=== PATIENT | male | born 1950 | race Caucasian/White ===

== ENCOUNTER 2016-04-27 08:43 | Outpatient (CLI) | payer BC ==
[~2016-04-27] VITALS: Ht 182.9 cm; Wt 96.2 kg
--- NOTE | ~2016-04-27 | HEMODYNAMI ---
PATIENT:ANNETTE BAXTER MEDICAL RECORD: [id number] : 54 LOCATION:[facility] ADMISSION DATE: 04/27/16 Generatedon:04/27/201613:33 Patient name: ANNETTE BAXTER Patient #: [id number] SSN: DO B: 1950 Date of study: 04/27/2016 Page: Of Hemodynamic Procedure Report Patient Data Patient Demographics Procedure consent was obtained First Name: ANNETTE Gender: Male Last Name: SAHIL : 1950 [facility] Initial: ANDREW Age: 66 year(s) Patient #: [id number] Race: Additional ID: [id number] Contact details Address: [address] [place] [address] [facility] State: [place] City: [facility] Zip code: [address] Past Medical History Allergies: No known allergies Admission Admission Data Admission Date: 04/27/2016 Admission Time: 8:43 Admit Source: Other Insurance Payor: Private health insurance Height (in.): 72 BSA: 2.2 (m2) Height (cm.): 182.88 BMI: 29.29 (kg/m2) Weight (lbs.): 216 Weight (kg.): 97.98 Medications upon Admission Medications Dosage Times Administered Last Remarks per Delivery Day Date and Time Clopidogrel Yes 04/27/2016 0:00 Lab Results Lab Result Date: 04/27/2016 Lab Result Time: 9:20 Biochemistry Name Units Result Min Max Creatinine mg/dl 1.7 --(----)-* 0.6 1.3 CBC Name Units Result Min Max Hematocrit % 39.9 -*(----)-- 42 54 Hemoglobin g/dl 12.7 -*(----)-- 13.5 17.5 Procedure Procedure Types Cath Procedure Diagnostic Procedure LHC LHC w/Coronaries w/Grafts FFR/IVUS Intra-Coronary IVUS Initial PCI Procedure Coronary Stent Initial Procedure Description Procedure Date Procedure Date: 04/27/2016 Procedure Start Time: 13:14 Procedure End Time: 13:31 Procedure Staff Name Function Damir Jason MD Performing Physician Ashley Koenig RN Nurse Agustín Martinez RT Scrub Burke Moreau RN Supervisor [employer] Graeme Guerrero RT Monitor Procedure Data Cath Procedure Fluoroscopy Diagnostic fluoroscopy Total fluoroscopy Time: 5.1 time: 5.1 min min Diagnostic fluoroscopy Total fluoroscopy dose: 764 dose: 764 mGy mGy Contrast Material Contrast Material Type Amount (ml) Isovue 300 117 Entry Location Entry Primary Successful Side Size Upsize Upsize Entry Closure Succes sful Closure Location (Fr) 1 (Fr) 2 (Fr) Remarks Device Remarks Femoral Right 5 Fr Vascade artery Closure System Estimated blood loss: 10 ml Diagnostic catheters Device Type Used For End Catheter Placement Cordis 5Fr Pigtail Procedure Catheter (MP) Cordis 5Fr JL 4.0 Procedure Catheter (MP) Cordis 5Fr 3DRC Catheter Procedure (MP) Procedure Complications No complications Procedure Medications Medication Administration Route Dosage Oxygen NC 2 l/min Lidocaine 2% added to field 20 Heparin Flush Bag added to field 2 bags (1000units/500ml NS) 0.9% NaCl I.V. 100 ml/hr Benadryl I.V. 50 mg Versed I.V. 1 mg Versed I.V. 1 mg Fentanyl I.V. 50 mcg Fentanyl I.V. 50 mcg Heparin Bolus I.V. 4000 units Versed I.V. 1 mg Hemodynamics Rest BSA: 2.2 (m2) HGB: 12.7 (g/dl) O2 Consumption: Estimated: 260.96 (ml/min) O2 Con sumption indexed: Estimated:118.62 (ml/min/m) Heart Rate: 75 (bpm) Snapshots Pre Cath Intra NCS Post Cath Vital Signs Time Heart Resp SPO2 etCO2 [id number] NIBP (mmHg) Rhythm Pain Sedation Rate (ipm) (%) (mmHg) (mmHg) Status Level (bpm) 12:59:38 59 25 100 0 0 149/80(122) NSR 0 (11) 10(A) , No pain 13:03:48 72 18 99 0 0 138/98(110) NSR 0 (11) 10(A) , No pain 13:08:06 64 18 99 0 0 143/78(94) NSR 0 (11) 10(A) , No pain 13:12:22 60 16 100 0 0 122/85(109) NSR 0 (11) 10(A) , No pain 13:16:28 64 18 98 0 0 123/79(100) NSR 0 (11) 9(A) , No pain 13:20:42 70 16 97 0 0 124/74(101) NSR 0 (11) 9(A) , No pain 13:24:54 83 17 99 0 0 136/84(104) NSR 0 (11) 9(A) , No pain 13:29:10 73 16 99 0 0 133/81(102) NSR 0 (11) 10(A) , No pain Medications Time Medication Route Dose Verified Delivered Reason Notes Effectiveness by by 12:48:31 Oxygen NC 2 Damir Buffie used for l/min Eren Koenig RN procedure 12:48:40 Lidocaine 2% added 20ml Damir Damir for local to vial Eren Jason MD anesthetic field 12:48:46 Heparin Flush added 2 Damir Damir used for Bag to bags Eren Jason MD procedure (1000units/500ml field NS) 13:03:02 Benadryl I.V. 50 mg Damir Buffie used for Eren Koenig RN procedure 13:03:02 0.9% NaCl I.V. 100 Damir Buffie Per physician ml/hr Eren Koenig RN 13:15:43 Versed I.V. 1 mg Damir Buffie for sedation Eren Koenig RN 13:15:50 Fentanyl I.V. 50 Damir Buffie for sedation mcg Eren Koenig RN 13:18:44 Versed I.V. 1 mg Damir Buffie for sedation Eren Koenig RN 13:18:50 Fentanyl I.V. 50 Damir Buffie for sedation mcg Eren Koenig RN 13:19:47 Heparin Bolus I.V. 4000 Damir Buffie for verifi ed units Eren Koenig RN anticoagulation with dr jason 13:23:33 Versed I.V. 1 mg Damir Buffie for sedation Eren Koenig RN Procedure Log Time Note 12:30:47 Andrei Beal RT(R) (CV) sent for patient. Start room use. 12:44:47 Admit Source: Other 12:45:44 Diagnostic Cath status Elective 12:45:48 Time tracking: Regular hours 12:45:53 Plan of Care:Hemodynamics will remain stable., Cardiac rhythm will remain stable., Comfort level will be maintained., Respiratory function will remain adequate., Patient/ family verbilizes understanding of procedure., Procedure tolerated without complication., Recovers from procedure without complications.. 12:48:31 Oxygen 2 l/min NC was given by Ashley Koenig RN; used for procedure; 12:48:40 Lidocaine 2% 20ml vial added to field was given by Damir Jason MD; for local anesthetic; 12:48:46 Heparin Flush Bag (1000units/500ml NS) 2 bags added to field was given by Damir Jason MD; used for procedure; 12:50:47 Patient received from Outpatients to [facility] 2 Alert and oriented. Tansferred to table in Supine position. 12:50:48 Warm blankets applied, and aubrey hugger turned on for patient comfort. 12:50:48 Correct patient and procedure confirmed by team. 12:50:50 Signed procedure consent form obtained from patient. 12:51:08 ECG and BP/O2 sat monitors applied to patient. 12:52:29 H&P Date Dictated: 04/23/2016 Within 30 days and on chart., H&P Addendum completed by physician on day of procedure. (MUST COMPLETE FOR ALL OUTPATIENTS). 12:52:31 Pre-procedure instructions explained to patient. 12:52:31 Pre-op teaching completed and patient verbalized understanding. 12:52:32 Family in waiting room. 12:52:33 Patient NPO since Midnight. 12:52:38 Patient allergic to No known allergies 12:52:53 Is the patient allergic to Iodine/contrast media? No. 12:52:54 Is patient on blood thinner?Yes 12:52:57 ACC The patient was administered the following blood thiners within the last 24 hours: ACCPlavix 12:54:01 Patient diabetic? No. 12:54:06 Previous problem with sedation/anesthesia? No ? 12:58:21 Vital chart was started 13:01:41 Snore? Yes 13:01:42 Sleep apnea? No 13:01:44 Deviated septum? No 13:01:44 Opens mouth fully? Yes 13:01:45 Sticks out tongue? Yes 13:01:47 Airway obstruction? No ? 13:01:49 Dentures? No ? 13:01:52 Pre procedure: right dorsailis pedis pulse 2+ Normal; easily identifiable; not easily obliterated 13:01:54 Patient pain scale 0/10 ?. 13:02:09 IV started by Burke Moreau RN inright hand with a 20 gauge IV catheter with 0.9% NaCl at KVO. 13:02:37 Lab Result : Creatinine 1.7 mg/dl 13:02:37 Lab Result : Hematocrit 39.9 % 13:02:49 Lab Result : Hemoglobin 12.7 g/dl 13:02:53 Lab results completed and on chart. 13:02:55 Right groin area was prepped with chlora-prep and draped in sterile fashion 13:02:56 Alarms reviewed by R. N. 13:02:57 Sharps counted by scrub and verified by R.N. 13:02:59 Use device set Femoral Dx 13:03:02 0.9% NaCl 100 ml/hr I.V. was given by Ashley Koenig RN; Per physician; 13:03:02 Benadryl 50 mg I.V. was given by Ashley Koenig RN; used for procedure; 13:03:02 Tegaderm 4 x 4 opened to sterile field. 13:03:03 Acist Manifold opened to sterile field. 13:03:03 Acist Hand Control opened to sterile field. 13:03:04 Acist Syringe opened to sterile field. 13:03:04 Bag Decanter opened to sterile field. 13:03:05 Cardinal Cath Pack opened to sterile field. 13:03:05 Terumo 5Fr [place] Sheath opened to sterile field. 13:03:06 St Gutierrez 260cm J .035 wire opened to sterile field. 13:03:07 Cordis Infinity 5Fr Multipack catheter opened to sterile field. 13:04:17 ACC Patient presents with Stable Angina CCS Anginal Class 2--Slight limitation of ordinary activity. 13:04:36 Baseline sample Acquired. 13:05:06 Rhythm: sinus rhythm 13:07:04 Zero performed for pressure channel P1 13:08:00 Patient Weight : 216 lbs 13:08:05 Patient Height : 72 inches 13:08:05 Insurance Payor : Private health insurance 13:14:09 --------ALL STOP TIME OUT------ 13:14:09 Final Timeout: patient, procedure, and site verified with staff and physician. All members of the team are in agreement. 13:14:11 Right groin site verified by team. 13:14:14 Physical assessment completed. ASA score P 2 - A patient with mild systemic disease as per Damir Jason MD. 13:14:17 Sedation plan: IV Moderate Sedation Versed, Fentanyl 13:14:27 Procedure started. 13:14:28 Full Disclosure recording started 13:14:30 Local anesthetic to right femoral artery with Lidocaine 2% by Damir Jason MD.INITIAL ACCESS ONLY 13:15:24 A 5 Fr sheath was inserted into the Right Femoral artery 13:15:29 J wire advanced. 13:15:43 Versed 1 mg I.V. was given by Ashley Koenig RN; for sedation; 13:15:46 A Cordis 5Fr Pigtail Catheter (MP) was advanced over the wire and used for Procedure. 13:15:50 Fentanyl 50 mcg I.V. was given by Ashley Koenig RN; for sedation; 13:15:52 LV gram done using COLEMAN 13:15:56 Injector settings: Ml/sec: 10, Volume: 20, 13:16:12 EF : 35 % 13:16:14 Catheter exchanged over wire. 13:16:18 A Cordis 5Fr JL 4.0 Catheter (MP) was advanced over the wire and used for Procedure. 13:17:29 Merit BasixCompak Inflation Kit opened to sterile field. 13:17:39 Terumo 6Fr [place] Sheath opened to sterile field. 13:17:39 Briceno Whisper J 300cm 0.014 guide wire opened to sterile field. 13:17:49 LCA angiography performed. 13:17:51 Catheter exchanged over wire. 13:17:57 A Cordis 5Fr 3DRC Catheter (MP) was advanced over the wire and used for Procedure. 13:18:00 SANCHEZ to LAD angiography performed. 13:18:38 RCA angiography performed. 13:18:44 Versed 1 mg I.V. was given by Ashley Koenig RN; for sedation; 13:18:50 Fentanyl 50 mcg I.V. was given by Ashley Koenig RN; for sedation; 13:19:41 skip graft to Ramus and Circ angiography performed. 13:19:47 Heparin Bolus 4000 units I.V. was given by Ashley Koenig RN; for anticoagulation; verified with dr jason 13:20:01 Catheter removed. 13:20:20 [place] IVUS Catheter opened to sterile field. 13:20:41 Medtronic Launcher 6Fr HS II guide catheter opened to sterile field. 13:21:09 6 Fr HS II guide catheter was inserted over the wire 13:21:11 whisper wire advanced. 13:21:16 Wire advanced across lesion. 13:21:19 IVUS catheter advanced over wire. 13:22:05 IVUS pass to RCA lesion performed. 13:23:33 Versed 1 mg I.V. was given by Ashley Koenig RN; for sedation; 13:24:01 IVUS catheter removed over wire. 13:25:28 Inflation Number: 1 A Medtronic Resolute 3.5 X 15 stent was prepped and advanced across the Mid RCA. The stent was deployed at 21 OSVALDO for 0:10 (min:sec). 13:25:44 multiple inflations to 21 atms 13:25:52 ACC PCI Site: mRCA has 77% stenosis. 13:25:55 ACC Pre-intervention MAGGIE Flow is 1. 13:26:48 Stent catheter was removed intact over wire. 13:27:07 ACC Post-intervention MAGGIE Flow is 3. 13:27:08 Wire removed. 13:27:09 Guide catheter removed. 13:27:26 Vascade 6/7 Fr Closure Device opened to sterile field. 13:29:20 Sheath removed intact; hemostasis achieved with Vascade Closure System to the Right Femoral artery. 13:29:22 Procedure ended.(Physican Out) 13:29:26 Fluoroscopy time 05.10 minutes. 13:29:30 Flurop Dose total: 764 13:29:30 Fluoroscopy dose: 764 mGy 13:29:42 Contrast amount:Isovue 300 117ml. 13:29:43 Sharps counted by scrub and verified by R.N. 13:29:45 Insertion/operative site no bleeding no hematoma. 13:29:47 Post-op/insertion site Right Femoral artery dressed using a 4 x 4 and Tegaderm. 13:29:51 Post right femoral artery:stable, soft, clean and dry 13:29:59 Post-procedure physical assessment completed. ASA score P 2 - A patient with mild systemic disease as per Damir Jason MD. 13:30:02 Post procedure rhythm: unchanged. 13:30:08 Estimated blood loss: 10 ml 13:30:13 Post procedure instruction explained to patient.Patient verbalizes understanding. 13:30:13 Patient needs reinforcement of post procedure teaching. 13:30:31 Procedure type changed to Cath procedure, Diagnostic procedure, LHC, LHC w/Coronaries w/Grafts, FFR/IVUS, Intra-Coronary IVUS Initial, PCI procedure, Coronary Stent Initial 13:31:33 Procedure and supply charges have been captured, reviewed, submitted and are correct. 13:31:34 Procedure Complication : No complications 13:31:37 Vital chart was stopped 13:31:37 See physician's report for complete and final results. 13:31:39 Report given to Post Procedure Room. 13:31:41 Patient transfered to Post Procedure Room with Stretcher. 13:31:43 Procedure ended. 13:31:43 Full Disclosure recording stopped 13:31:48 ACC-PCI Only Patient was given prescriptions, or instructed by Damir Jason MD to start/continue the following medications upon discharge: Plavix 13:33:09 End room use (Document Last) Intervention Summary Intervention Notes Time ActionType Lesion and Equipment Action# Pressure Duration Attributes Used 13:25:28 Place stent Mid RCA Medtronic 1 21 00:10 Resolute 3.5 X 15 stent Device Usage Item Name Manufacture Quantity Catalog Hospital Part Current Minima l Lot# / Number Charge Number Stock Stock Serial# Code Tegaderm 4 1 [id number] 258121 265321 5 x 4 Acist Acist 1 42841 819341 211476 864687 5 Manifold Medical Systems Inc Acist Hand Acist 1 35165 919432 610800 478977 5 Control Medical Systems Inc Acist Acist 1 29520 298390 100064 174770 20 Syringe Medical Systems Inc Bag Microtek 1 2001S 318921 70460 731997 5 Decanter Medical Inc. Cardinal Cardinal 1 [id number] 522044 00407 037681 5 Cath Pack Health Terumo 5Fr Terumo 1 [id number] 271897 024335 889737 [address] Gutierrez 1 758106 252721 471460 095128 30 260cm J .035 wire Cordis Cardinal 1 [id number] 943078 50184 501224 30 Infinity Health 5Fr Multipack catheter Cordis 5Fr Cardinal 1 [id number] 5 Pigtail Health Catheter (MP) Cordis 5Fr Cardinal 1 332778 5 JL 4.0 Health Catheter (MP) Merit Merit 1 [id number] 056386 133491 820253 15 BasixCompak Medical Inflation Kit Terumo 6Fr Terumo 1 [id number] 402829 258982 40 [place] Sheath Briceno Briceno 1 [id number] 647306 255150 935227 5 Whisper J Vascular 300cm 0.014 guide wire Cordis 5Fr Cardinal 1 909126 5 3DRC Health Catheter (MP) [place] 1 [id number] 819815 728088 182895 8 [place] IVUS Catheter Medtronic Medtronic 1 [id number] 196518 63348 375512 1 Launcher 6Fr HS II guide catheter Medtronic Medtronic 1 [id number] 067331 0 [id number] Resolute 3.5 X 15 stent Vascade 6/7 Cardiva 1 [id number] 846467 210646 362705 5 Fr Closure Medical, Device Inc. Signature Audit [place] Stage Time Signature Unsigned Intra-Procedure 04/27/2016 Graeme Guerrero 1:33:30 PM RT(R) Signatures Monitor : Graeme Guerrero RT Signature : Date : Time : [facility] [address] [place] [address]
--- NOTE | ~2016-04-27 | HEMODYNAMI ---
PATIENT:ANNETTE BAXTER MEDICAL RECORD: [id number] : 54 LOCATION[id number] ADMISSION DATE: 04/27/16 Generatedon:04/28/20169:45 Patient name: ANNETTE BAXTER Patient #: [id number] SSN: DO B: 1950 Date of study: 04/28/2016 Page: Of Hemodynamic Procedure Report Patient Data Patient Demographics Procedure consent was obtained First Name: ANNETTE Gender: Male Last Name: SAHIL : 1950 [facility] Initial: ANDREW Age: 66 year(s) Patient #: [id number] Race: Additional ID: [id number] Contact details Address: [address] [place] [address] [facility] State: [place] City: [facility] Zip code: [address] Past Medical History Allergies: No known allergies Admission Admission Data Admission Date: 04/27/2016 Admission Time: 8:43 Admit Source: Other Insurance Payor: Private Room #: [id number] health insurance Height (in.): 72 BSA: 2.2 (m2) Height (cm.): 182.88 BMI: 29.29 (kg/m2) Weight (lbs.): 216 Weight (kg.): 97.98 Medications upon Admission Medications Dosage Times Administered Last Remarks per Delivery Day Date and Time Clopidogrel Yes 04/27/2016 0:00 Lab Results Lab Result Date: 04/27/2016 Lab Result Time: 9:20 Biochemistry Name Units Result Min Max Creatinine mg/dl 1.7 --(----)-* 0.6 1.3 CBC Name Units Result Min Max Hematocrit % 39.9 -*(----)-- 42 54 Hemoglobin g/dl 12.7 -*(----)-- 13.5 17.5 Procedure Procedure Types Cath Procedure PCI Procedure Coronary Stent Initial Peripheral Cath Diagnostic Procedure Cath Peripheral Four Vessel Arteriogram Procedure Description Procedure Date Procedure Date: 04/28/2016 Procedure Start Time: 9:18 Procedure End Time: 9:45 Procedure Staff Name Function Damir Jason MD Performing Physician Elizabeth Rausch RT Scrub Ashley oKenig RN Nurse Burke Moreau RN Airport Traffic Controller Agustín Martinez RT Monitor Procedure Data Cath Procedure Fluoroscopy Diagnostic fluoroscopy Total fluoroscopy Time: 5.9 time: 5.9 min min Diagnostic fluoroscopy Total fluoroscopy dose: 643 dose: 643 mGy mGy Contrast Material Contrast Material Type Amount (ml) Isovue 300 85 Entry Location Entry Primary Successful Side Size Upsize Upsize Entry Closure Succes sful Closure Location (Fr) 1 (Fr) 2 (Fr) Remarks Device Remarks Femoral Left 6 Fr Vascade artery Short Closure System Estimated blood loss: 10 ml Diagnostic catheters Device Type Used For End Catheter Placement Cordis Infinity 5Fr 3DRC Procedure catheter Procedure Complications No complications Procedure Medications Medication Administration Route Dosage Oxygen NC 2 l/min Plavix P.O. 75 mg Lidocaine 2% added to field 20 Heparin Flush Bag added to field 2 bags (1000units/500ml NS) 0.9% NaCl I.V. 100 ml/hr Versed I.V. 1 mg Fentanyl I.V. 50 mcg Versed I.V. 1 mg Fentanyl I.V. 50 mcg Heparin Bolus I.V. 4000 units Fentanyl I.V. 50 mcg Hemodynamics Rest BSA: 2.2 (m2) HGB: 12.7 (g/dl) O2 Consumption: Estimated: 255.61 (ml/min) O2 Con sumption indexed: Estimated:116.19 (ml/min/m) Heart Rate: 68 (bpm) Snapshots Pre Cath Intra NCS Post Cath Vital Signs Time Heart Resp SPO2 etCO2 [id number] NIBP (mmHg) Rhythm Pain Sedation Rate (ipm) (%) (mmHg) (mmHg) Status Level (bpm) 9:03:56 73 17 92 0 0 Measuring NSR 0 (11) 10(A) , No pain 9:04:21 66 18 98 0 0 149/85(132) NSR 0 (11) 10(A) , No pain 9:08:43 68 16 99 0 0 161/88(120) NSR 0 (11) 10(A) , No pain 9:13:07 67 16 99 0 0 139/86(107) NSR 0 (11) 10(A) , No pain 9:17:25 75 15 99 0 0 128/83(100) NSR 0 (11) 10(A) , No pain 9:21:45 73 17 95 0 0 130/68(105) NSR 0 (11) 9(A) , No pain 9:26:03 70 16 96 0 0 136/79(103) NSR 0 (11) 9(A) , No pain 9:30:23 70 19 97 0 0 113/66(96) NSR 0 (11) 9(A) , No pain 9:35:23 75 17 96 0 0 Measuring NSR 0 (11) 9(A) , No pain 9:35:29 75 19 96 0 0 131/77(108) NSR 0 (11) 9(A) , No pain 9:39:47 76 16 95 0 0 125/77(96) NSR 0 (11) 9(A) , No pain 9:42:28 74 17 96 0 0 123/69(84) NSR 0 (11) 10(A) , No pain Medications Time Medication Route Dose Verified Delivered Reason Notes Effectiveness by by 9:03:12 Oxygen NC 2 Damir Buffie used for l/min Eren Koenig RN procedure 9:05:32 Plavix P.O. 75 mg Damir Buffie for Eren Koenig RN antiplatelet therapy 9:12:53 Lidocaine 2% added 20ml Damir Damir for local to vial Eren Jason MD anesthetic field 9:12:59 Heparin Flush added 2 Damir Damir used for Bag to bags Eren Jason MD procedure (1000units/500ml field NS) 9:13:07 0.9% NaCl I.V. 100 Damir Buffie Per physician ml/hr Eren Koenig RN 9:17:45 Versed I.V. 1 mg Damir Buffie for sedation Eren Koenig RN 9:17:53 Fentanyl I.V. 50 Damir Buffie for sedation mcg Eren Koenig RN 9:22:44 Versed I.V. 1 mg Damir Buffie for sedation Eren Koenig RN 9:22:47 Fentanyl I.V. 50 Damir Buffie for sedation mcg Eren Koenig RN 9:25:57 Heparin Bolus I.V. 4000 Damirlesly Grijalvaie for verifie d units Eren Koenig RN anticoagulation with dr jsaon 9:37:03 Fentanyl I.V. 50 Damir Buffie for sedation [facility] [place] Eren Koenig wreath inspector Log Time Note 8:35:23 Burke Moreau RN sent for patient. Start room use. 8:47:52 Admit Source: Other 8:48:16 Patient Weight : 216 lbs 8:48:16 Patient Height : 72 inches 8:48:21 Diagnostic Cath status Elective 8:48:25 Time tracking: Regular hours 8:48:32 Plan of Care:Hemodynamics will remain stable., Cardiac rhythm will remain stable., Comfort level will be maintained., Respiratory function will remain adequate., Patient/ family verbilizes understanding of procedure., Procedure tolerated without complication., Recovers from procedure without complications.. 8:54:10 Patient received from PCU to CCL 2 Alert and oriented. Tansferred to table in Supine position. 8:54:11 Warm blankets applied, and aubrey hugger turned on for patient comfort. 8:54:12 Correct patient and procedure confirmed by team. 8:54:13 Signed procedure consent form obtained from patient. 8:54:14 ECG and BP/O2 sat monitors applied to patient. 9:02:07 Vital chart was started 9:02:09 Baseline sample Acquired. 9:02:16 Rhythm: sinus rhythm 9:03:12 Oxygen 2 l/min NC was given by Ashley Koenig RN; used for procedure; 9:03:13 H&P Date Dictated: 04/27/2016 Within 30 days and on chart.. 9:03:14 Pre-procedure instructions explained to patient. 9:03:14 Pre-op teaching completed and patient verbalized understanding. 9:03:16 Family in waiting room. 9:03:19 Patient NPO since Midnight. 9:03:39 Is the patient allergic to Iodine/contrast media? No. 9:03:57 Is patient on blood thinner?Yes 9:04:05 ACC The patient was administered the following blood thiners within the last 24 hours: ACCPlavix 9:04:30 Plavix given 04/27/16. 9:04:34 Patient diabetic? No. 9:04:39 Previous problem with sedation/anesthesia? No ? 9:04:41 Snore? Yes 9:04:42 Sleep apnea? No 9:04:43 Deviated septum? No 9:04:44 Opens mouth fully? Yes 9:04:45 Sticks out tongue? Yes 9:04:46 Airway obstruction? No ? 9:04:49 Dentures? No ? 9:05:32 Plavix 75 mg P.O. was given by Ashley Koenig RN; for antiplatelet therapy; 9:09:38 Pre procedure: left dorsailis pedis pulse 1+ Palpable, but thready & weak; easily obliterated 9:09:41 Patient pain scale 0/10 ?. 9:09:57 IV patent on arrival in right hand with 0.9% NaCl at [facility]. 9:10:07 Lab results completed and on chart. 9:10:23 Left groin area was prepped with chlora-prep and draped in sterile fashion 9:10:24 Alarms reviewed by R. N. 9:10:25 Sharps counted by scrub and verified by R.N. 9:10:36 Use device set Femoral PCI 9:10:38 Acist Manifold opened to sterile field. 9:10:39 Tegaderm 4 x 4 opened to sterile field. 9:10:40 Merit BasixCompak Inflation Kit opened to sterile field. 9:10:41 Acist Syringe opened to sterile field. 9:10:42 Acist Hand Control opened to sterile field. 9:10:42 Bag Decanter opened to sterile field. 9:10:42 Cardinal Cath Pack opened to sterile field. 9:10:43 Terumo 6Fr [place] Sheath opened to sterile field. 9:10:43 St Gutierrez 260cm J .035 wire opened to sterile field. 9:11:17 Briceno Whisper J 300cm 0.014 guide wire opened to sterile field. 9:12:16 Procedure type changed to Cath procedure, PCI procedure, Coronary Stent Initial, Peripheral Cath Diagnostic Procedure, Cath Peripheral, Four Vessel Arteriogram 9:12:53 Lidocaine 2% 20ml vial added to field was given by Damir Jason MD; for local anesthetic; 9:12:59 Heparin Flush Bag (1000units/500ml NS) 2 bags added to field was given by Damir Jason MD; used for procedure; 9:13:07 0.9% NaCl 100 ml/hr I.V. was given by Ashely Koenig RN; Per physician; 9:14:18 --------ALL STOP TIME OUT------ 9::18 Final Timeout: patient, procedure, and site verified with staff and physician. All members of the team are in agreement. 9:14:21 Left groin site verified by team. 9::23 Physical assessment completed. ASA score P 2 - A patient with mild systemic disease as per Damir Jason MD. 9:14:28 Sedation plan: IV Moderate Sedation Versed, Fentanyl 9:17:45 Versed 1 mg I.V. was given by Ashley Koenig RN; for sedation; 9:17:53 Fentanyl 50 mcg I.V. was given by Ashley Koenig RN; for sedation; 9:18:47 Procedure started. 9:18:47 Full Disclosure recording started 9:18:58 Local anesthetic to left femerol artery with Lidocaine 2% by Damir Jason MD.INITIAL ACCESS ONLY 9:19:41 A 6 Fr Short sheath was inserted into the Left Femoral artery 9:19:58 A Building Our Communityity 5Fr 3DRC catheter was advanced over the wire and used for Procedure. 9:20:56 Right subclavian angiography performed 9::59 Left carotid angiography performed. 9:21:00 Left subclavian angiography performed 9:21:17 Cordis 6FR XBLAD 3.5 guide catheter opened to sterile field. 9:22:44 Versed 1 mg I.V. was given by Ashley Koenig RN; for sedation; 9::47 Fentanyl 50 mcg I.V. was given by Ashley Koenig RN; for sedation; 9:23:26 Catheter removed. 9:23:40 6 Fr XBLAD 3.5 guide catheter was inserted over the wire 9:24:01 ACC PCI Site: pCirc has 80% stenosis. 9:24:04 ACC Pre-intervention MAGGIE Flow is 3. 9:24:08 Whisper wire advanced. 9:25:57 Heparin Bolus 4000 units I.V. was given by Ashley Koenig RN; for anticoagulation; verified with dr jason 9:26:37 Wire advanced across lesion. 9:32:02 Inflation Number: 1 A Medtronic Resolute 4.0 X 9 stent was prepped and advanced across the Prox CX. The stent was deployed at 23 OSVALDO for 0:10 (min:sec). 9:32: Stent catheter was removed intact over wire. 9:37:03 Fentanyl 50 mcg I.V. was given by Ashley Koenig RN; for sedation; 9:38:03 Inflation number: 2 A NC Euphora 4.0 x 8 balloon was prepped and advanced across the Prox CX, then inflated to 23 OSVALDO for 0:10 (min:sec). 9:38:49 Multiple inflations to 23 Atms. 9:38:53 Balloon removed over the wire. 9:38:53 Wire removed. 9:38:54 Wire removed. 9:39:15 Vascade 6/7 Fr Closure Device opened to sterile field. 9:39:27 Sheath removed intact; hemostasis achieved with Vascade Closure System to the Left Femoral artery. 9:39:30 Procedure ended.(Physican Out) 9:39:47 Fluoroscopy time 05.90 minutes. 9:39:52 Flurop Dose total: 643 9:39:52 Fluoroscopy dose: 643 mGy 9:40:06 Contrast amount:Isovue 300 85ml. 9:40:08 Sharps counted by scrub and verified by R.N. 9:40:11 Insertion/operative site no bleeding no hematoma. 9:40:15 Post-op/insertion site Left Femoral artery dressed using a 4 x 4 and Tegaderm. 9:40:17 Post Procedure Pulses reassessed and unchanged 9:40:20 Post-procedure physical assessment completed. ASA score P 2 - A patient with mild systemic disease as per Damir Jason MD. 9:40:23 Post procedure rhythm: unchanged. 9:40:26 Estimated blood loss: 10 ml 9:40:28 Post procedure instruction explained to patient.Patient verbalizes understanding. 9:40:29 Patient needs reinforcement of post procedure teaching. 9:40:32 Procedure Complication : No complications 9:41:43 Procedure and supply charges have been captured, reviewed, submitted and are correct. 9:44:55 Vital chart was stopped 9:44:56 See physician's report for complete and final results. 9:44:58 Report given to PCU. 9:45:01 Patient transfered to PCU with Bed. 9:45:04 Procedure ended. 9:45:04 Full Disclosure recording stopped 9:45:10 ACC-PCI Only Patient was given prescriptions, or instructed by Damir Jason MD to start/continue the following medications upon discharge: Plavix 9:45:12 End room use (Document Last) Intervention Summary Intervention Notes Time ActionType Lesion and Equipment Action# Pressure Duration Attributes Used 9:32:02 Place stent Prox CX Medtronic 1 23 00:10 Resolute 4.0 X 9 stent 9:38:03 Inflate Prox CX NC 2 23 00:10 balloon Euphora 4.0 x 8 balloon Device Usage Item Name Manufacture Quantity Catalog Hospital Part Current Minima l Lot# / Number Charge Number Stock Stock Serial# Code Acist Acist 1 98375 630901 690785 625899 5 Tal Medical Medical Systems Inc Tegaderm 4 3M 1 [id number] 177835 540019 482416 5 x 4 Merit Merit 1 [id number] 042683 706717 278409 15 ZEFR Medical Inflation Kit Acist Acist 1 86390 259444 977034 991664 20 Syringe Medical Systems Inc Acist Hand Acist 1 82935 518287 729518 081328 5 codebender Medical Systems ENDOGENX Bag Microtek 1 2002S 939220 60824 508557 5 ORDISSIMO Medical Inc. Cardinal Cardinal 1 [id number] 456057 94112 718833 5 Cath Pack Health Terumo 6Fr Terumo 1 [id number] 561770 786317 232288 [address] Gutierrez 1 615403 866809 284175 657373 30 260cm J .035 wire Briceno Briceno 1 [id number] 084108 573295 593918 5 Whisper J Vascular 300cm 0.014 guide wire Cordis Cardinal 1 [id number] 191697 823765 307596 9 Infinity Health 5Fr 3DRC catheter Cordis 6FR Cardinal 1 [id number] 525367 400909 564704 10 XBLAD 3.5 Health guide catheter Medtronic Medtronic 1 [id number] 611911 387060 0 [id number] Resolute 4.0 X 9 stent NC Euphora Medtronic 1 [id number] 158510 670033 477097 0 [id number] 4.0 x 8 balloon Vascade 6/7 Cardiva 1 [id number] 061138 041772 666670 5 Fr Closure Medical, Device Inc. Signature Audit [place] Stage Time Signature Unsigned Intra-Procedure 04/28/2016 Agustín Martinez 9:45:48 AM RT(R) Signatures Monitor : Agustín Martinez RT Signature : Date : Time : [place] [id number] [place] [address]
[~2016-04-27 08:43] MED LIST: BAYER CHEWABLE81 MG PO; LASIX20 MG PO; LIPITOR10 MG PO; MELATONIN 3 MG1 TAB PO; NORCO 10/325 TA1 TA1 PO; PLAVIX75 MG PO; PRAVASTATIN SOD10 MG PO; RESTORIL15 MG PO; TRIGLIDE160 MG PO
[2016-04-27] MEDS ORDERED: PROTONIX40 MG PO (09:43)
[2016-04-27] MEDS ORDERED: PLAVIX75 MG PO (09:47)
[2016-04-27] MEDS ORDERED: LIPITOR10 MG PO (09:49)
[2016-04-27 09:50] LABS: BASOPHILS 0.2 % (0.0-2.0); EOSINOPHILS 1.5 % (0-7); HEMATOCRIT 39.9 % (42.0-54.0); HEMOGLOBIN 12.7 g/dL (13.5-17.5); IMMATURE GRANULOCYTES 0.2 % (0-5); LYMPHOCYTES 28.1 % (15-50); MCH 29.5 pg (26.0-34.0); MCHC 31.8 g/dL (31.0-37.0); MCV 92.6 fL (80.0-100.0); MEAN PLATELET VOLUME 9.6 fL (7.4-10.4); MONOCYTES 8.2 % (2-11); NEUTROPHILS 61.8 % (40-80); PLATELET COUNT 209 10x3/uL (130-400); RBC 4.31 10x6/uL (4.20-6.10); RDW 15.1 % (11.5-14.5); WBC 4.6 10x3/uL (4.8-10.8)
[2016-04-27 09:55] LABS: ANION GAP 11.4 mmol/L (8-16); CALCIUM 9.1 mg/dL (8.5-10.1); CARBON DIOXIDE 28.5 mmol/L (21.0-32.0); CREATININE - SERUM 1.7 mg/dL (0.6-1.3); POTASSIUM - SERUM 4.9 mmol/L (3.5-5.1)
[2016-04-27 09:56] VITALS: BP 132/87; BMI 29.3
--- NOTE | 2016-04-27 14:02 | NUR ---
VSS WITH CHEST PAIN DENIED PATIENT RESTING QUIETLY WITH FAMILY AT SIDE. 7 FR VASCADE R/GROIN CDI NO BLEEDING NO HEMATOMA NOTED WILL MONITOR
--- NOTE | 2016-04-27 14:30 | NUR ---
1430 7 FR VASCADE R/GROIN CDI NO BLEEDING NO HEMATOMA NOTED CHEST PAIN IS DENIED.VSS WITH NO C/O FAMILY AT SIDE
--- NOTE | 2016-04-27 15:00 | NUR ---
RESTING IN BED WITH HEAD FLAT ON PILLOW. RIGHT GROIN DRSG CDI, NO HEMATOMA NOTED. NO C/O CHEST PAIN. VSS.
--- NOTE | 2016-04-27 15:30 | NUR ---
RESTING IN BED. VSS. NO C/O AT THIS TIME. NO BLEEDING OR HEMATOMA NOTED TO RIGHT GROIN.
--- NOTE | 2016-04-27 16:09 | NUR ---
REPORT CALLED TO FAMILIA MORRISSEY ON MED II.
[2016-04-27 17:05] VITALS: BP 125/68; Ht 182.9 cm; Wt 96.2 kg
[2016-04-27 17:11] VITALS: BP 125/68
--- NOTE | 2016-04-27 17:31 | NUR ---
FAMILIA TUBBS BROUGHT PT FROM [facility] VIA BED. PT HAS DRESSING THAT IS CLEAN, DRY, AND INTACT TO RIGHT GROIN AREA WITH PEDAL PULSE STRONG +2. IV SEEN TO RIGHT WRIST WITH NS RUNNING AT 100CC. ON ROOM AIR. BREATH SOUNDS ARE CLEAR. BOWELS ARE ACTIVE IN ALL FOUR QUADRANTS. INSTRUCTED PT TO LAY FLAT FOR ANOTHER 45 MINUTES TO MAKE 4 HOURS TOTAL OF LYING FLAT. PT AGREED. VITALS ARE BEING TAKING EVERY HOUR. QUICKSTART, ASSESSMENT AND HISTORY ARE DONE. HOME MEDICATION LIST IS COMPLETED. NO NEED AT CURRENT TIME. WILL CONTINUE TO MONITOR AND AWAIT NEW ORDERS.
--- NOTE | 2016-04-27 18:22 | NUR ---
PT SITTING UP IN BED WITH AT BEDSIDE RESTING. DENIES ANY NEED AT CURRENT TIME. DRESSING TO RIGHT GROIN WHERE PT HAD STENT PLACEMENT THIS AFTERNOON IS CLEAN, DRY, AND INTACT. PEDAL PULSES ARE STRONG. WILL CONTINUE TO MONITOR.
--- NOTE | 2016-04-27 19:14 | NUR ---
ON MONITOR SHOWING SR, HR 76.
--- NOTE | 2016-04-27 19:30 | NUR ---
ALERT AND ORIENTED X3, RESP UNLAB WITH NO S/S OF ACUTE DISTRESS NOTED. RT GROIN INCISION CDI WITH PPP BILAT SKIN WARM TO TOUCH. RESP UNLAB TELEMETRY IN PLACE SHOWING HR SR. URINAL AT BEDSIDE W/O DIFF. HOB UP SR UP X2, C/L IN REACH. VISITORS AT BEDSIDE. CONTINUE TO MONITOR.
[2016-04-27 20:00] VITALS: BP 134/71
[2016-04-28] VITALS: BP 125/65
--- NOTE | 2016-04-28 02:15 | NUR ---
EYES CLOSED, RESP UNLAB WITH NO S/S OF ACUTE DISTRESS NOTED. C/L IN REACH. CONTINUE TO MONITOR. NPO FOR AM PROCEDURE.
[2016-04-28 04:00] VITALS: BP 112/65
--- NOTE | 2016-04-28 08:13 | NUR ---
PT PRE-OPED FOR PROCEDURE ORDERED. AWAITING HIGH TENSION TESTER TO COME GET PT.
--- NOTE | 2016-04-28 08:34 | NUR ---
0830- PT TO WINDOW DISPLAY DESIGNER VIA BED.
[2016-04-28 08:52] VITALS: BP 142/88
--- NOTE | 2016-04-28 10:36 | NUR ---
1000- PT BACK FROM BIBLIOGRAPHIC SERVICES SPECIALIST. OPSITE DRESSING SEEN TO LEFT GROIN AREA THAT IS CLEAN, DRY, AND INTACT. PEDAL PULSE IS STRONG. PT IS RESTING WITH EYES CLOSED. NS STARTED AT 100CC/HR. WILL CONTINUE TO MONITOR FREQUENT VITALS. INSTRUCTED PT TO LIE FLAT FOR 4 HOURS WITH LEG STRAIGHT. WILL CONTINUE TO MONITOR.
[2016-04-28] MEDS ORDERED: PLAVIX75 MG PO (10:44)
[2016-04-28 12:13] VITALS: BP 125/65
--- NOTE | 2016-04-28 14:44 | NUR ---
UPON WALKING INTO PTS ROOM PT STATED HE HAD GOTTEN UP TO GO TO THE BATHROOM. I INFORMED PT TO NOT GET UP UNLESS HE CALLS FOR STAFF MEMBER TO OBSERVE HIM GET UP OOB FOR THE FIRST TIME. HE STATED HE HAD TO GO AND COULDN'T WAIT. PT ALSO RAISED HOB ON HIS OWN TO 40 DEGREES WITHOUT LETTING ME KNOW. CHECKED LEFT GROIN WHERE STENT WAS PLACED TODAY AND DRESSING IS CLEAN, DRY, AND INTACT. INFORMED PT TO USE CALL LIGHT TO GET ME WHEN NEEDING TO GET OOB. WILL CONTINUE TO MONITOR.
--- NOTE | 2016-04-28 15:19 | NUR ---
EXPLAINED D/C PAPERWORK TO PT. D/C PAPERWORK SIGNED AND DATED AND PLACED IN CHART. IV REMOVED WITH CATH TIP INTACT. SECURED SITE WITH 4X4 GAUZE AND TAPE. TOLERATED WELL. AWAITING PT TO D/C.
--- NOTE | 2016-05-04 14:16 | DS ---
PATIENT:ANNETTE BAXTER :54 MEDICAL RECORD: [id number] DISCHARGE SUMMARY ADMISSION DATE: 04/27/16 DISCHARGE DATE: 04/28/16 DATE OF DISCHARGE: 04/28/2016 DISCHARGE DIAGNOSES: 1. Angina. 2. Coronary artery disease. 3. Percutaneous transluminal coronary angioplasty stent right coronary artery and left circumflex this admission. 4. Hypertension. 5. Hyperlipidemia. HOSPITAL COURSE: Mr. Baxter presents with anginal symptomatology, found to have 2-vessel disease to the left circumflex and RCA, underwent successful PTCA stent of above territories with no recurrent anginal symptomatology. He was discharged home to continue the aspirin and Plavix. We will follow up in 1 month with [facility]. TRANSINT:[id number] Voice Confirmation ID: [id number] DOCUMENT ID: [id number] NAHOMY CASANOVA MD at 1416 CC: [id number] DICTATION DATE: 04/28/16 0943 CUSTOMER CARE CONSULTANT: 04/28/16 0950 DEP CLI 04/28/[address] [address]
--- NOTE | 2016-05-04 14:16 | OP ---
THIS REPORT HAS BEEN APPENDED PATIENT NAME: ANNETTE BAXTER MEDICAL RECORD: [id number] :54 LOCATION:D.CAT ADMISSION DATE: SURGEON: NAHOMY CASANOVA MD DATE OF OPERATION: 04/27/2016 PROCEDURES: 1. PTCA stent RCA. 2. Left heart catheterization. 3. Selective coronary angiography. 4. Vein graft angiography. 5. SANCHEZ angiography. 6. Left ventriculogram. INDICATION: Angina and coronary artery disease. PROCEDURE IN DETAIL: After informed consent was obtained and after detailed explanation of risks, benefits as well as alternative therapies, the patient elected to proceed with angiogram and angioplasty. The right femoral area was prepped and draped in normal sterile fashion. The right femoral artery was cannulated via modified Seldinger technique with placement of 6-Frisian sheath. All catheters exchanged through this sheath. FINDINGS: 1. Left main showed no significant angiographic disease. 2. Left anterior descending is totally occluded. 3. SANCHEZ to the LAD is widely patent. 4. Vein graft in a skipped fashion to LAD, left circumflex first obtuse marginal is widely patent. 5. Left circumflex ostium has a napkin-ring greater than 80% stenosis. This leads into the large second obtuse marginal. 6. The right coronary has multiple previously placed stents, this is with 2 areas of greater than 75% in-stent restenosis. PERCUTANEOUS TRANSLUMINAL CORONARY ANGIOPLASTY STENT OF THE RIGHT CORONARY: The stent used was a 3.5 x 15-mm Resolute taken to 23 atmospheres. The stent balloon was addressed in the second region of the in-stent restenosis. Result was 0% residual stenosis. OVERALL IMPRESSION: Successful percutaneous transluminal coronary angioplasty stent of the right coronary artery for greater than 75% in-stent restenosis to 0% residual. PLAN: For PTCA stent of the left circumflex ostium in the near future. TRANSINT:[id number] Voice Confirmation ID: [id number] DOCUMENT ID: [id number] OPERATIVE REPORT [id number] ANNETTE BAXTER NAHOMY CASANOVA MD at 1112 SECTION 2 ADDENDUM 1: 05/08/16 0925 TRANSINT Addendum: Intravascular ultrasound was performed. Dictation ID [id number] at 1400 CC: [id number] DICTATION DATE: 04/27/16 1330 THREAD LASTER: 04/27/16 1345 DEP CLI 04/28/16 [place] [id number] [place] [id number]
--- NOTE | 2016-05-04 14:16 | OP ---
PATIENT NAME: ANNETTE BAXTER MEDICAL RECORD: [id number] :54 LOCATION:D.CAT ADMISSION DATE: SURGEON: NAHOMY CASANOVA MD DATE OF OPERATION: 04/28/2016 PROCEDURES: 1. PTCA stent left circumflex. 2. Selective coronary angiography. 3. Four-vessel carotid and vertebral angiography. INDICATION: Angina, TIA symptomatology, coronary artery disease, and carotid vascular disease. PROCEDURE IN DETAIL: After informed consent was obtained and after detailed explanation of risks, benefits as well as alternative therapies, the patient elected to proceed with angiogram and angioplasty. The left femoral area was prepped and draped in normal sterile fashion. Left femoral artery was cannulated via modified Seldinger technique with the placement of 6-Macedonian sheath. All catheters exchanged through this sheath. FINDINGS: There was a subselection of ____ subclavian as well as the left carotid. RIGHT SIDE: The common and internal carotids have mild plaquing, none greater than 20%. The external carotid appears to be totally occluded. The vertebral artery is devoid of disease. LEFT SYSTEM: The common internal and external carotids have mild plaquing, none greater than 20%. There is a stent in the internal carotid, this is widely patent with no significant restenosis. PTCA STENT OF THE LEFT CIRCUMFLEX: The stent used is a 4.0 x 9 mm Resolute taken to 23 atmospheres. Post-stent dilatation with a 4.0 high pressure Euphora to 23 atmospheres. Result was 0% residual stenosis. OVERALL IMPRESSION: 1. Successful percutaneous transluminal coronary angioplasty stent of the left circumflex ostium going from 80% initial stenosis to 0% residual. 2. Wide patency of the left carotid stent with no carotid disease that is significant elsewise. TRANSINT:[id number] Voice Confirmation ID: [id number] DOCUMENT ID: [id number] NAHOMY CASANOVA MD at 1416 CC: [id number] DICTATION DATE: 04/28/16 0945 HEALTHCARE ASSOCIATE: 04/28/16 1055 DEP CLI 04/28/16 [place] [id number]
== END 2016-04-28 15:30 | disposition home or self-care (01) ==
LOC: D.M2 08:43 → D.CATH 08:43 → D.M2 16:52 → D.CATH 04-28 15:30
PROVIDERS: Internal Medicine Interventional Cardiology
DX: I25.119 Atherosclerotic heart disease of native coronary artery with unspecified angina pectoris (principal); T82.855A Stenosis of coronary artery stent, initial encounter; I10 Essential (primary) hypertension; E78.5 Hyperlipidemia, unspecified; I65.29 Occlusion and stenosis of unspecified carotid artery

== ENCOUNTER 2018-09-27 10:19 | Emergency (ER) | payer MEDICARE, BC ==
[~2018-09-27] VITALS: Ht 182.9 cm; Wt 90.9 kg
[~2018-09-27 10:19] MED LIST changes: +PROTONIX40 MG PO
[2018-09-27 10:34] VITALS: Ht 182.9 cm; Wt 90.9 kg
[2018-09-27] MEDS ORDERED: LISINOPRIL20 MG (11:34)
[2018-09-27] MEDS ORDERED: COREG 3.1253.125 MG (11:35)
[2018-09-27 13:21] VITALS: BP 158/89
== END 2018-09-27 13:15 | disposition home or self-care (01) ==
LOC: D.ER 10:19
DX: S01.81XA Laceration without foreign body of other part of head, initial encounter (principal); W30.89XA Contact with other specified agricultural machinery, initial encounter; I25.10 Atherosclerotic heart disease of native coronary artery without angina pectoris; I48.91 Unspecified atrial fibrillation

== ENCOUNTER → 2019-08-07 08:17 | Outpatient (CLI) | payer MEDICARE, BC ==
[2018-09-27 10:34] VITALS: BMI 27.2
[~2019-08-07 08:17] MED LIST changes: +COREG 3.1253.125 MG; +LISINOPRIL20 MG
== END | disposition home or self-care (01) ==
LOC: D.HCCARDIO 08-02 10:00
PROVIDERS: ATTEND Internal Medicine Cardiovascular Disease
DX: I25.810 Atherosclerosis of coronary artery bypass graft(s) without angina pectoris (principal)

== ENCOUNTER 2019-08-17 06:15 | Outpatient (CLI) | payer MEDICARE, BC ==
[~2019-08-17] VITALS: Ht 182.9 cm; Wt 90.5 kg
--- NOTE | ~2019-08-17 | HEMODYNAMI ---
PATIENT:ANNETTE BAXTER MEDICAL RECORD: [id number] : 54 LOCATION:[facility] ADMISSION DATE: 08/17/19 Generatedon:08/17/201910:15 Patient name: ANNETTE BAXTER Patient #: [id number] SSN: DO B: 1950 Date of study: 08/17/2019 Page: Of Hemodynamic Procedure Report Patient Data Patient Demographics Procedure consent was obtained First Name: ANNETTE Gender: Male Last Name: SAHIL : 1950 [facility] Initial: BERL Age: 69 year(s) Patient #: [id number] Race: Additional ID: [id number] Contact details Address: [address] [place] [address] [address] State: [place] City: [facility] Zip code: [address] Past Medical History Allergies: No known allergies Admission Admission Data Admission Date: 08/17/2019 Admission Time: 6:15 Procedure Procedure Types Cath Procedure Diagnostic Procedure LHC LHC w/Coronaries w/Grafts Sedation Charges Moderate Sedation up to 30 minutes Procedure Description Procedure Date Procedure Date: 08/17/2019 Procedure Start Time: 9:49 Procedure End Time: 10:13 Procedure Staff Name Function Robbie Holguin MD Performing Physician Gem Hollis RT Monitor Judi Olivier RT Scrub Ashley Koenig RN Nurse Clarisa Anton RT Electrical Parts Reconditioner Procedure Data Cath Procedure Fluoroscopy Diagnostic fluoroscopy Total fluoroscopy Time: 6.4 time: 6.4 min min Diagnostic fluoroscopy Total fluoroscopy dose: 6.4 dose: 6.4 mGy mGy Contrast Material Contrast Material Type Amount (ml) Isovue 300 100 Entry Location Entry Primary Successful Side Size Upsize Upsize Entry Closure Succes sful Closure Location (Fr) 1 (Fr) 2 (Fr) Remarks Device Remarks Femoral Right 5 Fr Exoseal artery Estimated blood loss: 5 ml Diagnostic catheters Device Type Used For End Catheter Placement MULTIPACK JL 4.0 5Fr Left Coronary catheter Angiography MULTIPACK 3DRC 5Fr Right Coronary catheter Angiography DIAGNOSTIC IM 5Fr SVG Angiography catheter ([id number]) DIAGNOSTIC IMT 5Fr SVG Angiography Catheter ([id number]) DIAGNOSTIC AR MOD 5Fr SVG Angiography Catheter ([id number]) MULTIPACK Pigtail 5 Fr LV Angiography catheter Procedure Complications No complications Procedure Medications Medication Administration Route Dosage Oxygen etCO2 Nasal cannula 2 l/min Lidocaine 2% added to field 20 Heparin Flush Bag added to field 2 bags (1000units/500ml NS) 0.9% NaCl I.V. 100 ml/hr Versed I.V. 1 mg Fentanyl I.V. 50 mcg Versed I.V. 1 mg Fentanyl I.V. 50 mcg Versed I.V. 1 mg Hemodynamics Rest Heart Rate: 55 (bpm) Pressure Samples Time Site Value (mmHg) Purpose Heart Use Rate(bpm) 10:08 LV 127/-13,15 Snapshot 68 10:09 AO 124/52(79) Pullback 66 10:09 LV 117/-7,14 Pullback 66 Gradients Valve Time Site 1 Site 2 Mean SEP/DFP Peak To Heart Use (mmHg) (sec/min) Peak Rate (mmHg) (bpm) Aortic 10:09 LV AO 0 16 0 66 117/-7,14 124/52(79) Calculations Valve P-P Mean Valve Index Valve Source Name Gradient Area Flow (cm2) Aortic 0 0 0 0 Snapshots Pre Cath Intra NCS Post Cath Vital Signs Time Heart Resp SPO2 etCO2 NIBP (mmHg) Rhythm Pain Sedation Rate (ipm) (%) (mmHg) Status Level (bpm) 9:38:26 51 11 99 0 145/83(123) NSR 0 (11) 10(A) , No pain 9:42:50 53 12 98 27 144/84(122) NSR 0 (11) 10(A) , No pain 9:47:08 70 16 97 32.9 131/88(105) NSR 0 (11) 10(A) , No pain 9:52:32 54 14 100 0 142/78(128) NSR 0 (11) 9(A) , No pain 9:56:56 69 15 95 0 133/78(92) NSR 0 (11) 9(A) , No pain 10:01:18 73 16 96 0 131/73(107) NSR 0 (11) 9(A) , No pain 10:05:36 63 15 98 0 127/69(99) NSR 0 (11) 9(A) , No pain 10:09:52 66 11 98 0 120/71(100) NSR 0 (11) 10(A) , No pain Medications Time Medication Route Dose Verified Delivered Reason Notes Eff ectiveness by by 9:43:00 Oxygen etCO2 2 Robbie Buffie used for Nasal l/min Ezio Koenig RN procedure cannula 9:43:08 Lidocaine 2% added 20ml Robbie Robbie for local to vial Ezio Holguin MD anesthetic field 9:43:15 Heparin Flush added 2 Robbie Robbie used for Bag to bags Ezio Holguin MD procedure (1000units/500ml field NS) 9:43:23 0.9% NaCl I.V. 100 Robbie Buffie Per ml/hr Ezio Koenig RN physician 9:43:55 Versed I.V. 1 mg Robbie Buffie for Ezio Koenig RN sedation 9:44:00 Fentanyl I.V. 50 Robbie Buffie for mcg Ezio Koenig RN sedation 9:53:04 Versed I.V. 1 mg Robbie Buffie for Ezio Koenig RN sedation 9:53:08 Fentanyl I.V. 50 Robbie Buffie for mcg Ezio Koenig RN sedation 10:00:50 Versed I.V. 1 mg Robbie Buffie for Ezio Koenig RN sedation Procedure Log Time Note 9:29:03 Informed consent obtained and on chart 9:29:11 Diagnostic Cath Status : Elective 9:29:35 Procedure Status Elective Heart Cath (OP). 9:29:38 Clarisa Anton RT(R) (CV) sent for patient. Start room use. 9:31:31 Time tracking: Regular hours (M-F 7:00 - 5:00) 9:31:36 Plan of Care:Hemodynamics will remain stable., Cardiac rhythm will remain stable., Comfort level will be maintained., Respiratory function will remain adequate., Patient/ family verbilizes understanding of procedure., Procedure tolerated without complication., Recovers from procedure without complications.. 9:31:41 Patient received from Pre/Post Procedure Room to CCL 1 Alert and oriented. Tansferred to table in Supine position. 9:31:42 Warm blankets applied, and aubrey hugger turned on for patient comfort. 9:31:43 Correct patient and procedure confirmed by team. 9:31:43 ECG and BP/O2 sat monitors applied to patient. 9:37:01 Baseline sample Acquired. 9:37:01 Vital chart was started 9:37:05 Rhythm: sinus rhythm 9:37:07 Full Disclosure recording started 9:37:11 H&P Date Dictated: 08/17/2019 Within 30 days and on chart., H&P Addendum completed by physician on day of procedure. (MUST COMPLETE FOR ALL OUTPATIENTS). 9:37:13 Pre-procedure instructions explained to patient. 9:37:14 Pre-op teaching completed and patient verbalized understanding. 9:37:15 Family unavailable. 9:37:16 Patient NPO since Midnight. 9:37:19 Is the patient allergic to Iodine/contrast media? No. 9:37:21 Was the patient premedicated? Yes 9:37:22 Is patient on blood thinner?No 9:37:26 Patient diabetic? No. 9:37:30 Previous problem with sedation/anesthesia? No ? 9:37:33 Snore? Yes 9:37:34 Sleep apnea? Yes 9:37:35 Deviated septum? No 9:37:35 Opens mouth fully? Yes 9:37:36 Sticks out tongue? Yes 9:37:38 Airway obstruction? No ? 9:37:41 Dentures? No ? 9:37:45 Pre procedure: right dorsailis pedis pulse 2+ Normal; easily identifiable; not easily obliterated 9:37:47 Pre procedure: left dorsailis pedis pulse 2+ Normal; easily identifiable; not easily obliterated 9:37:51 Patient pain scale 0/10 ?. 9:38:15 IV patent on arrival in right forearm with 0.9% NaCl at O. 9:40:01 Stress Test: yes; abnormal ? 9:42:03 Right groin area was prepped with chlora-prep and draped in sterile fashion 9:42:04 Alarms reviewed by R. N. 9:42:05 Sharps counted by scrub and verified by R.N. 9:42:07 Physician arrived 9:42:08 --------ALL STOP TIME OUT------ 9:42:08 Final Timeout: patient, procedure, and site verified with staff and physician. All members of the team are in agreement. 9:42:10 Right groin site verified by team. 9:42:15 Fire Safety Assessment: A--An alcohol-based skin anteseptic being used preoperatively., C--Open oxygen or nitrous oxide is being used., D--An ESU, laser, or fiber-optic light is being used. 9:42:22 Physical assessment completed. ASA score P 2 - A patient with mild systemic disease as per Robbie Holguin MD. 9:42:27 Sedation plan: IV Moderate Sedation Medication:Versed, Fentanyl 9:42:30 Use device set Femoral Dx 9:42:31 ACIST Syringe (79957) opened to sterile field. 9:42:31 Bag Decanter (2002S) opened to sterile field. 9:42:32 Medline Cath Pack ([id number]) opened to sterile field. 9:42:33 ACIST Hand Control (95011) opened to sterile field. 9:42:33 ACIST Manifold (58538) opened to sterile field. 9:42:34 DIAGNOSTIC Multipack 5Fr catheter set ([id number]) opened to sterile field. 9:42:34 Tegaderm 4 x 4 (1626W) opened to sterile field. 9:42:36 SHEATH 5FR [place] ([id number]) opened to sterile field. 9:42:36 EMERALD Guide Wire (075-539) opened to sterile field. 9:43:00 Oxygen 2 l/min etCO2 Nasal cannula was administered by Ashley Koenig RN; used for procedure; Verbal order read back and verified. 9:43:08 Lidocaine 2% 20ml vial added to field was administered by Robbie Holguin MD; for local anesthetic; Verbal order read back and verified. 9:43:15 Heparin Flush Bag (1000units/500ml NS) 2 bags added to field was administered by Robbie Holguin MD; used for procedure; Verbal order read back and verified. 9:43:23 0.9% NaCl 100 ml/hr I.V. was administered by Ashley Koenig RN; Per physician; Verbal order read back and verified. 9:43:55 Versed 1 mg I.V. was administered by Ashley Koenig RN; for sedation; Verbal order read back and verified. 9:44:00 Fentanyl 50 mcg I.V. was administered by Ashley Koenig RN; for sedation; Verbal order read back and verified. 9:47:14 Procedure started. 9:49:58 Local anesthetic to right femoral artery with Lidocaine 2% by Robbie Holguin MD.INITIAL ACCESS ONLY 9:50:07 A 5 Fr sheath was inserted into the Right Femoral artery 9:50:08 A MULTIPACK JL 4.0 5Fr catheter was advanced over the wire and used for Left Coronary Angiography. 9:53:01 LCA angiography performed. 9:53:04 Versed 1 mg I.V. was administered by Ashley Koenig RN; for sedation; Verbal order read back and verified. 9:53:05 Injector settings: Ml/sec: 3, Volume: 6, 9:53:08 Fentanyl 50 mcg I.V. was administered by Ashley Koenig RN; for sedation; Verbal order read back and verified. 9:55:17 Catheter removed. 9:55:25 A MULTIPACK 3DRC 5Fr catheter was advanced over the wire and used for Right Coronary Angiography. 9:56:52 RCA angiography performed. 9:56:55 Injector settings: Ml/sec: 3, Volume: 6, 9:58:15 Catheter removed. 9:58:28 A DIAGNOSTIC IM 5Fr catheter ([id number]) was advanced over the wire and used for SVG Angiography. 10:00:50 Versed 1 mg I.V. was administered by Ashley Koenig RN; for sedation; Verbal order read back and verified. 10:01:17 Catheter removed. unable to cannulate vessel. 10:01:25 A DIAGNOSTIC IMT 5Fr Catheter ([id number]) was advanced over the wire and used for SVG Angiography. 10:02:44 SANCHEZ to LAD angiography performed. 10:02:52 Catheter removed. 10:07:27 A DIAGNOSTIC AR MOD 5Fr Catheter ([id number]) was advanced over the wire and used for SVG Angiography. 10:08:18 SVG to Circ angiography performed. 10:08:47 Catheter removed. 10:08:53 A MULTIPACK Pigtail 5 Fr catheter was advanced over the wire and used for LV Angiography. 10:09:01 LV hemodynamics recorded. 10:09:18 EF : 30 % 10:10:21 Catheter removed. 10:10:30 EXOSEAL 5Fr (EX500) opened to sterile field. 10:10:38 Sheath removed intact; hemostasis achieved with Exoseal to the Right Femoral artery. 10:10:39 Procedure ended.(Physican Out) 10:10:59 Fluoroscopy time 06.40 minutes. 10:11:11 Flurop Dose total: 6.4 10:11:11 Fluoroscopy dose: 6.4 mGy 10:11:15 Dose Area Product 632 mGy/cm. 10:11:18 Contrast amount:Isovue 300 100ml. 10:11:20 Maximum allowable dose exceeded? No. 10:11:21 Sharps counted by scrub and verified by R.N. 10:11:23 Insertion/operative site no bleeding no hematoma. 10:11:25 Post-op/insertion site Right Femoral artery dressed using a 4 x 4 and Tegaderm. 10:11:26 Post Procedure Pulses reassessed and unchanged 10:11:28 Post procedure rhythm: unchanged. 10:11:31 Estimated blood loss: 5 ml 10:11:33 Post procedure instruction explained to patient.Patient verbalizes understanding. 10:11:33 Patient needs reinforcement of post procedure teaching. 10:11:45 Procedure type changed to Cath procedure, Diagnostic procedure, LHC, [facility] w/Coronaries w/Grafts, Sedation Charges, Moderate Sedation up to 30 minutes 10:12:52 Procedure and supply charges have been captured, reviewed, submitted and are correct. 10:12:56 Procedure Complication : No complications 10:13:01 Vital chart was stopped 10:13:05 [facility] Findings: MVD- MD will discuss options w/ pt 10:13:07 Operative report dictated upon procedure completion. 10:13:08 See physician's report for complete and final results. 10:13:10 Report given to Pre/Post Procedure Room. 10:13:12 Patient transfered to Pre/Post Procedure Room with Stretcher. 10:13:14 Procedure ended. 10:13:14 Full Disclosure recording stopped 10:13:18 End room use (Document Last) Device Usage Item Name Manufacture Quantity Catalog Number Hospital Part Current Minim al Lot# / Charge Number Stock Stock Serial# Code ACIST Acist 1 10257 [id number] [id number] 269484 20 Syringe Medical (22982) Systems Inc Bag Microtek 1 133366 54861 834481 5 Decanter Medical Inc. () Medline Medline 1 [id number] 627810 23311 788935 5 Cath Pack ([id number]) ACIST Hand Acist 1 52604 885092 091944 394266 5 Control Medical (68928) Systems Inc ACIST Acist 1 68702 105365 841874 013038 5 Manifold Medical (77516) Systems Inc DIAGNOSTIC Cardinal 1 [id number] 646928 78942 034313 30 Multipack Health 5Fr catheter set (ME3337) Tegaderm 4 3M 1 1626W 293579 093338 546069 5 x 4 (1626W) SHEATH 5FR Terumo 1 [id number] 476967 757446 155993 5 [place] ([id number]) EMERALD Cardinal 1 502455 937013 283610 899740 5 Guide Wire Health (502-406) MULTIPACK Cardinal 1 748790 5 JL 4.0 5Fr Health catheter MULTIPACK Cardinal 1 950132 5 3DRC 5Fr Health catheter DIAGNOSTIC Cardinal 1 [id number] 240457 794729 189389 5 IM 5Fr Health catheter ([id number]) DIAGNOSTIC [place] 1 [id number] 091996 806658 44829 5 IMT 5Fr Scientific Catheter ([id number]) DIAGNOSTIC Cardinal 1 [id number] 519381 285387 111054 15 [place] MOD 5Fr Health Catheter ([id number]) MULTIPACK Cardinal 1 326500 5 Pigtail 5 Health Fr catheter EXOSEAL 5Fr Cardinal 1 EX500 337882 391720 772661 10 (EX500) Health Signature Audit [place] Stage Time Signature Unsigned Intra-Procedure 08/17/2019 Gem Hollis 10:14:48 AM RT(R) Intra-Procedure 08/17/2019 Ashley Koenig RN 10:15:11 AM Intra-Procedure 08/17/2019 Robbie Holguin MD 10:15:38 AM [facility] [address] [place] [address]
[2019-08-17] MEDS ORDERED: LISINOPRIL2.5 MG PO (06:49)
[2019-08-17] MEDS ORDERED: COREG6.25 MG PO (06:51)
[2019-08-17] MEDS ORDERED: TRAZODONE HCL150 MG PO (06:52)
[2019-08-17] MEDS ORDERED: FERROUS SULFAT325 MG PO (06:52)
[2019-08-17] MEDS ORDERED: ASPIRIN325 MG PO (06:53)
[2019-08-17 07:02] VITALS: BP 157/80; Ht 182.9 cm; Wt 90.5 kg
[2019-08-17 10:05] LABS: BASOPHILS 0.3 % (0-2); EOSINOPHILS 1.3 % (0-7); HEMATOCRIT 42.7 % (42.0-54.0); HEMOGLOBIN 12.7 g/dL (13.5-17.5); IMMATURE GRANULOCYTES 0.2 % (0-5); MCH 24.7 pg (26.0-34.0); MCHC 29.7 g/dL (31.0-37.0); MCV 82.9 fL (80.0-100.0); MEAN PLATELET VOLUME 9.2 fL (7.4-10.4); MONOCYTES 8.3 % (2-11); NEUTROPHILS 59.9 % (40-80); PLATELET COUNT 222 10x3/uL (130-400); RBC 5.15 10x6/uL (4.20-6.10); RDW 24.9 % (11.5-14.5); WBC 6.2 10x3/uL (4.8-10.8)
[2019-08-17 10:09] LABS: ANION GAP 12.8 mmol/L (8-16); CALCIUM 8.7 mg/dL (8.5-10.1); CARBON DIOXIDE 26.7 mmol/L (21.0-32.0); CHOL - HDL RATIO 5.3 ratio (2.3-4.9); CREATININE - SERUM 1.4 mg/dL (0.6-1.3); LDL-HDL RATIO 3.5 ratio (1.5-3.5); POTASSIUM - SERUM 4.5 mmol/L (3.5-5.1)
--- NOTE | 2019-08-17 10:25 | NUR ---
PT RECEIVED BACK TO ROOM FOR RECOVERY VIA STRETCHER FROM SLEEP TECHNICIAN. PT SLEEPING BUT VERBALLY AROUSABLE, DENIES PAIN OR DISCOMFORT. IV PATENT INFUSING VIA R ARM PER ORDERS. PT PLACED ON CARDIAC MONITORS AND O2 AT 2L VIA MASK. HR NSR RATE 73, BP 141/70, RR 13, SAT 99. R GROIN SOFT, DRESSING CDI NO S/S HEMATOMA NOTED. LEG PINK AND WARM, PEDAL PULSES PALPABLE. CALL LIGHT IN REACH.
--- NOTE | 2019-08-17 10:45 | NUR ---
PT SLEEPING COMFORTABLY, VSS. R GROIN SOFT, DRESSING REMAINS CDI NO S/S HEMATOMA OR BLEEDING. CALL LIGHT IN REACH
--- NOTE | 2019-08-17 11:30 | NUR ---
PT RESTING COMFORTABLY, O2 REMOVED. R GROIN SOFT, DRESSING REMAINS CDI NO S/S HEMATOMA NOTED. LEG PINK AND WARM. HOB ELEVATED SLIGHTLY, WATER GIVEN TO DRINK. VSS. 1140 DR AZUL AT , NO NEW ORDERS RECEIVED.
--- NOTE | 2019-08-17 12:40 | NUR ---
DISCHARGE INSTRUCTIONS REVEIWED W PT, HE VERBALIZED UNDERSTANDING. R GROIN SOFT, DRESSING CDI NO S/S HEMATOMA OR BLEEDING NOTED. IV REMOVED W CATH INTACT, MONITORS REMOVED AND PT UP TO DRESS FOR DISCHARGE
--- NOTE | 2019-08-17 12:50 | NUR ---
PT DISCHARGED VIA WC TO WAITING IN PRIVATE VEHICLE. PT HAD ALL BELONGINGS AND DISCHARGE PAPERWORK
--- NOTE | 2019-08-17 12:50 | NUR ---
PT AMBULATED TO BR, VOIDING W/O DIFFICULITY.
== END 2019-08-17 12:50 | disposition home or self-care (01) ==
LOC: D.CATH 06:15
PROVIDERS: ATTEND Internal Medicine Cardiovascular Disease
DX: I25.709 Atherosclerosis of coronary artery bypass graft(s), unspecified, with unspecified angina pectoris (principal); I34.0 Nonrheumatic mitral (valve) insufficiency; R06.09 Other forms of dyspnea; E78.5 Hyperlipidemia, unspecified; I10 Essential (primary) hypertension

== ENCOUNTER → 2020-06-27 08:29 | Outpatient (CLI) | payer MEDICARE, BC ==
[2020-04-22 18:59] VITALS: BMI 27.8
[~2020-06-27 08:29] MED LIST changes: +ASPIRIN325 MG PO; +COREG6.25 MG PO; +FERROUS SULFAT325 MG PO; +HYDROCODONE-AC1 EAC2 PO; +LISINOPRIL2.5 MG PO; +TRAZODONE HCL150 MG PO
== END | disposition home or self-care (01) ==
LOC: D.HCCECHO 08:29
PROVIDERS: ATTEND Internal Medicine Cardiovascular Disease
DX: I34.0 Nonrheumatic mitral (valve) insufficiency (principal)